=== PATIENT | female | born 1995 | race Caucasian/White ===

== ENCOUNTER 2025-04-21 09:18 | Day surgery (SDC) | payer OTHER ==
[2025-04-14 16:31] LABS: BASOPHILS # (AUTO) 0.1 X10'3 (0-0.2); BASOPHILS % (AUTO) 0.7 % (0-1); EOSINOPHILS # (AUTO) 0.2 X10'3 (0-0.9); EOSINOPHILS % (AUTO) 1.6 % (0-6); LYMPHOCYTES # (AUTO) 2.8 X10'3 (1.1-4.8); LYMPHOCYTES % (AUTO) 27.3 % (21-51); MEAN CORPUSCULAR VOLUME 85.2 FL (78-98); MEAN PLATELET VOLUME 6.9 FL (7.4-10.4); MONOCYTES # (AUTO) 0.6 X10'3 (0-0.9); MONOCYTES % (AUTO) 5.5 % (2-12); NEUTROPHILS # (AUTO) 6.7 X10'3 (1.8-7.7); NEUTROPHILS % (AUTO) 64.9 % (42-75); PRE OP HEMATOCRIT 42.8 % (35.0-45.0); PRE OP HEMOGLOBIN 14.6 g/dL (12.0-16.0); PRE OP PLATELET COUNT 277 X10'3 (140-440); PRE OP WHITE BLOOD COUNT 10.4 10'3 (4.8-10.8); RED BLOOD COUNT 5.03 X10'6 (4.20-5.60); RED CELL DISTRIBUTION WIDTH 13.2 % (11.5-14.5)
[2025-04-14 16:32] LABS: BILIRUBIN,URINE NEGATIVE (Neg); CLARITY,URINE CLEAR (Clear); COLOR,URINE YELLOW (Yellow); GLUCOSE, URINE NEGATIVE (Neg); KETONES,URINE TRACE mg/dl (Neg); LEUKOCYTE ESTERASE ,URINE NEGATIVE (Neg); NITRITES, URINE NEGATIVE (Neg); OCCULT BLOOD,URINE TRACE-INTACT (Neg); PROTEIN,URINE NEGATIVE (Neg); UROBILINOGEN,URINE 0.2 E.U/dL (0.2-1.0)
[2025-04-14 16:41] LABS: UA COLLECTION TYPE CLN CATCH MIDSTREAM
[2025-04-14 16:42] LABS: RBC,URINE 0-2 /HPF (0-2); WBC,URINE 0-4 /HPF (0-4)
[2025-04-14 16:43] LABS: BACTERIA,URINE FEW /HPF (Neg); MUCUS STRANDS NONE SEEN /LPF (Neg); SQUAMOUS EPITHELIAL CELL,UR MODERATE /LPF (FEW)
[2025-04-14 17:06] LABS: HCG SERUM QL NEGATIVE
[2025-04-14 17:09] LABS: PRE OP INR 1.1 INR
[2025-04-14 17:23] LABS: ALBUMIN 4.1 G/DL (3.4-5.0); ALBUMIN/GLOBULIN RATIO 1.2 (1.1-1.5); ALKALINE PHOSPHATASE 61 IU/L (46-116); BLOOD UREA NITROGEN 13 MG/DL (7-18); BUN/CREATININE RATIO 17.6 (10.0-20.0); CHLORIDE 105 MMOL/L (99-107); CREATININE 0.74 MG/DL (0.40-0.90); PRE OP ALT 25 U/L (30-65); PRE OP ANION GAP 6 (8-16); PRE OP AST 23 U/L (10-37); PRE OP BILIRUB, TOTAL 0.5 MG/DL (0.0-1.0); PRE OP GLUCOSE 89 MG/DL (70-104); PRE OP POTASSIUM 3.4 MMOL/L (3.4-5.1); PRE OP SODIUM 142 MMOL/L (135-145); TOTAL CARBON DIOXIDE 31.2 MMOL/L (24-32); TOTAL PROTEIN 7.5 G/DL (6.4-8.2); eGFR > 90 ML/MIN
[2025-04-21] VITALS (13 sets, daily range): BP systolic 99–113; BP diastolic 51–66; PULSE 69–116; RESP 9–23; TEMP 98.3; O2SAT 96–99
[~2025-04-21] VITALS: Ht 165.1 cm; Wt 70.0 kg
[2025-04-21] MEDS: ceFAZolin 2gm in dextrose, iso 50 ML IV ONE (05:30)
[~2025-04-21 09:18] MED LIST: ESCI5TAB17 PO; LEVE500T PO; [UNRECOGNIZED DRUG - CODE] SQ
[2025-04-21] MEDS: famotidine 20mg tablet PO ONE (10:10)
[2025-04-21] MEDS: ringers solution, lacted 1,000 ML IV SCH (10:11)
[2025-04-21] MEDS ORDERED: bacitracin 15gm ointment TP ONE (11:04)
[2025-04-21] MEDS ORDERED: vancomycin 1,000mg inj ONE (11:04)
[2025-04-21] MEDS ORDERED: BUPIVAcaine 2.5mg/ml inj 50ml vial (contains preservative) ONE (11:04)
[2025-04-21] MEDS ORDERED: cloNIDine hcl/PF 100mcg/ml inj ONE (13:08)
[2025-04-21] MEDS ORDERED: fentaNYL/PF 50MCG/1 ML 2ML syringe ONE (13:18)
[2025-04-21] MEDS ORDERED: hydrALAZINE 20mg/ml inj. IV PRN (13:50)
[2025-04-21] MEDS ORDERED: HYDROmorphone/PF 0.2 MG/ML SYRINGE IV PRN (13:50)
[2025-04-21] MEDS ORDERED: morphine 2 MG/ML inj. syringe IV PRN (13:50)
[2025-04-21] MEDS ORDERED: proCHLORperazine 10 MG/2 ml inj IV PRN (13:50)
[2025-04-21] MEDS ORDERED: ringers solution, lacted 1,000 ML IV SCH (13:50)
[2025-04-21] MEDS ORDERED: labetalol 20mg/4ml (5mg/ml) syringe IV PRN (13:50)
[2025-04-21] MEDS ORDERED: ondansetron/PF 4mg/2ml inj IV PRN (13:50)
[2025-04-21] MEDS ORDERED: sevoflurane 250ml liquid IH ONE (13:54)
[2025-04-21] MEDS ORDERED: propofol inj 20 ML IV ONE (14:33)
[2025-04-21] MEDS ORDERED: midazolam 1 mg/ML 2ml injection ONE (14:33)
[2025-04-21] MEDS ORDERED: LIDOcaine 2% (20mg/ml) 5ml vial ONE (14:34)
[2025-04-21] MEDS ORDERED: dexamethasone sod phosphate 4mg/ml inj. ONE (14:34)
[2025-04-21] MEDS ORDERED: 0.9 % SODIUM CHLORIDE 10 ML VIAL ONE (14:34)
[2025-04-21] MEDS ORDERED: ROPIVAcaine 0.5% (5mg/ml) 30ml vial ONE (14:34)
[2025-04-21] MEDS: morphine 4 MG/ML inj SYRINge IV PRN (17:35)
[2025-04-21] MEDS: HYDROmorphone/PF 0.2 MG/ML SYRINGE IV PRN (17:52)
[2025-04-21] MEDS: acetaminophen 1,000mg/100ml IV 100 ML IV PRN (17:53)
[2025-04-21] MEDS: oxyCODONE/APAP 5-325mg tablet PO ONE (18:21)
--- NOTE | 2025-04-21 18:21 | OPERATIVE REPORT ---
DATE OF SURGERY: 04/21/2025 DICTATING PHYSICIAN: Pierce Mc DPM PREOPERATIVE DIAGNOSES: * Tear of the anterior talofibular ligament, left ankle. * Tear of the peroneus brevis tendon, left ankle. * Tear of the peroneus longus tendon, left ankle. * Tear of the posterior tibial tendon, left ankle and foot. * Partial tear of the spring ligament of the left foot. POSTOPERATIVE DIAGNOSES: * Tear of the anterior talofibular ligament, left ankle. * Tear of the peroneus brevis tendon, left ankle. * Tear of the posterior tibial tendon, left ankle and foot. * Partial tear of the spring ligament of the left foot. There was no identifiable tear of the peroneus longus tendon and therefore, there was no surgical procedure to repair that tendon. PROCEDURES: * Repair of the anterior talofibular ligament with the use of a [place] 28 internal brace system, left ankle. * Separate incision for the repair of the peroneus brevis tendon with graft, left ankle. * Flexor digitorum longus tendon transfer, left foot and ankle. * Medial calcaneal displacement osteotomy with rigid internal fixation, left heel. COMPLICATIONS: One of the guide pins broke in the heel bone while advancing it out with a wire driver recruiter. However, the pin is not intraarticular and should not cause the patient any problems whatsoever. ESTIMATED BLOOD LOSS: Less than 5 mL. INDICATIONS FOR SURGERY: The patient had a Workers' Compensation related injury with significant soft tissue injuries. She has been treated conservatively for over 6 months with immobilization, physical therapy, splinting, anti-inflammatory medication, and these conservative measures have not been successful in reducing her chief complaint of pain and disability. Therefore, surgical intervention was considered justified. A C-arm was used during the case and a Benoit splint. was applied to the left lower extremity, making sure to keep the foot at 90 degrees to the lower leg. Capillary refill time was instantaneous upon completion of the procedure. DESCRIPTION OF PROCEDURE: The patient was escorted to the operating room suite, where she was prepared and draped in the usual sterile technique. The patient was given 2 g of Ancef IV 30 minutes prior to the skin incision. The patient was placed in the supine position, and the tourniquet was inflated to 250 mmHg after exsanguinating the left lower extremity. The initial procedure consisted of repair of the anterior talofibular ligament. This was done by way of a lateral extensile incision. The incision allowed for visualization of the torn anterior talofibular ligament. Utilizing the [place] 28 internal brace system, an anchor were placed into the body of the talus as well as into the distal anterior aspect of the fibula. Multiple sutures were used after imbricating and then to repairing the torn ligament. The foot and ankle was maintained in a dorsiflexed position with some valgus alignment during the ligament repair. The next part of the procedure consisted of a separate incision for the peroneus brevis tendon repair. An interstitial split tear was noted along the course of the peroneus brevis tendon. This was tubularized and repaired with suture, and then, utilizing a collagen graft for scaffold, the graft was wrapped around the tendon that was torn and then sutured down with the use of #3-0 Vicryl. The next part of the procedure consisted of a separate incision for medial calcaneal displacement osteotomy of the left heel. This was done along the lateral aspect of the calcaneus. The osteotomy was through and through. Lamina head trimmer was used to distract the osteotomy and then the tuber of the calcaneus was shifted medially about 6 mm. Two screws were used for rigid internal fixation. It was noted that one of the guide pins broke in the bone while attempting to advance the pin out and remained buried entirely within the bone.The next part of the procedure consisted of a flexor digitorum longus tendon transfer. This was done with a separate incision. The posterior tibial tendon was visualized and it was noted to have a longitudinal split tear distal to the retromalleolar groove of the medial malleolus. There was also degeneration noted for the posterior tibial tendon. The flexor digitorum longus tendon was released proximal to the master knot of Umesh and then was tunneled into the navicular bone from plantar to dorsal and then a [place] 28 Bio-Tenodesis screw was used to maintain the appropriate position of the flexor digitorum longus tendon into the bony tunnel. The foot was placed in slight inversion and plantarflexion when performing this part of the procedure and physiologic tension was maintained. The flexor digitorum longus tendon was then sutured down to the posterior tibial tendon for reinforcement. Any bleeding vessels were bovied and neurovascular structures were protected throughout the procedure. Irrisept was used for irrigation. Saline was also used for irrigation. C-arm was used during the case. Appropriate alignment was noted intraoperatively. The patient was placed in a posterior splint, Benoit splint style. Capillary refill time was instantaneous for toes 1 through 5 left. The patient was then escorted to PACU with the appropriate postoperative instructions. The patient was given general anesthesia and was also given a popliteal and an adductor canal block for long postoperative anesthesia. Pierce Mc DPM TID: [id number] RECEIPT: [id number] MELIDA/NATI JOLLEY
== END 2025-04-21 18:50 | disposition home or self-care (01) ==
LOC: PAS 09:18
PROVIDERS: ATTEND Podiatrist Foot & Ankle Surgery
DX: S86.312A Strain of muscle(s) and tendon(s) of peroneal muscle group at lower leg level, left leg, initial encounter (principal); S96.812A Strain of other specified muscles and tendons at ankle and foot level, left foot, initial encounter; S93.692A Other sprain of left foot, initial encounter; M76.822 Posterior tibial tendinitis, left leg; M21.6X2 Other acquired deformities of left foot; F32.A Depression, unspecified; F41.9 Anxiety disorder, unspecified; G40.909 Epilepsy, unspecified, not intractable, without status epilepticus; X58.XXXA Exposure to other specified factors, initial encounter; Y93.89 Activity, other specified; Y92.89 Other specified places as the place of occurrence of the external cause; Y99.8 Other external cause status; Z79.01 Long term (current) use of anticoagulants; G89.18 Other acute postprocedural pain; Z79.899 Other long term (current) drug therapy
CPT/HCPCS: 27659; 27691; 27695; 28300; 36415; 64445; 64447; 73610; 80053; 81001; 82948; 84703; 85025; 85610; 85730; A6222; A6223; C1713; C1781; J0131; J0735; J1100; J1171; J2003; J2250; J2270; J2704; J2795; J3010; J3490; J7030; J7120; Z7506; Z7508; Z7512; 76000; A4618; A6253; A6446; A6449; A6455; A7000; J3370

== ENCOUNTER 2025-04-23 00:31 | Inpatient (IN) | payer BC, OTHER ==
[~2025-04-23] VITALS: Ht 165.1 cm; Wt 72.0 kg
--- NOTE | 2025-04-23 01:11 | Physician Documentation ---
History of Present Illness ~ Chief Complaint: Post-operative complication Stated Complaint: PAIN Time Seen by MD: 01:10 HPI Patient presents to the emergency room with pain to her left lower extremity after having surgery two days ago. She says the block wore off today he had and she has been taking ibuprofen Tylenol and oxycodone and it is not helping the pain. Medication Reconciliation Allergies: Coded Allergies: gluten (Verified Allergy, Severe, CONSTIPATION, BLOATING, AND RASH, 04/20/25) Scheduled Escitalopram Oxalate (Escitalopram Oxalate), 1 TAB PO DAILY, (Reported) Levetiracetam (Levetiracetam), 2 TAB PO BID, (Reported) Semaglutide (Semaglutide), Unknown Dose SQ Q7DAYS, (Reported) Review of Systems ROS All review of systems negative except as per HPI Physical Exam Vital Signs: Temperature: 97.8, Source: Temporal, Heart Rate: 87, Respiratory Rate: 18, BP: 104/63, Pulse Oximetry: 100, Weight: 72.000 Oxygen Flow Rate: 0 Physical Exam General: Patient is awake, alert, oriented x4 in mild distress Head: Normocephalic and atraumatic. Eyes: Conjunctival normal. EOMI. PERRL. ENT: Mucous membranes moist. Neck: Supple, trachea is midline. Chest: Clear to auscultation bilaterally without rales, rhonchi, or wheezes. There is no accessory muscle use or retractions. Cardiac: RRR without murmurs, gallops, or rubs. Abd: Soft, nondistended, nontender, with normoactive bowel sounds. No guarding, rebound, or rigidity. Extremities: Right lower extremity normal, left lower extremity with postsurgical changes with no signs of infection with good capillary refill, no active bleeding Progress Results/Orders Results/Orders Orders - FAB FOSS MD Ortho Orders (04/23/25 01:23) Page Hospitalist (04/23/25 02:50) Fill Out Med Reconciliation (04/23/25 02:50) Completed Orders - FAB FOSS MD Ondansetron Inj. (Zofran 4mg/2ml Vial) (04/23/25 01:25) Morphine 4mg/Ml Inj. (Morphine Inj.) (04/23/25 01:25) Hydromorphone 0.5 Mg/0.5 Ml/Pf (Dilaudid (04/23/25 02:05) Cbc/Diff (04/23/25 02:06) BMP (04/23/25 02:06) CK (04/23/25 02:06) Procalcitonin (04/23/25 02:06) Hydromorphone 0.5 Mg/0.5 Ml/Pf (Dilaudid (04/23/25 03:15) Medications Received in ER Medications (Trade) Dose Ordered Sig/Anoop Route PRN Reason Start Time Stop Time Status Last Admin Dose Admin (Zofran 4mg/2ml vial) 4 mg ONCE ONCE IV 04/23/25 01:25 04/23/25 01:26 DC 04/23/25 01:33 4 MG (morphine inj.) 4 mg ONCE ONCE IV 04/23/25 01:25 04/23/25 01:26 DC 04/23/25 01:33 4 MG (Dilaudid inj.) 0.5 mg ONCE ONCE IV 04/23/25 02:05 04/23/25 02:08 DC 04/23/25 02:15 0.5 MG (Dilaudid inj.) 0.5 mg ONCE ONCE IV 04/23/25 03:15 04/23/25 03:16 DC 04/23/25 03:57 0.5 MG (Dilaudid inj.) 0.5 mg Q4H PRN IV SEVERE PAIN 7-10 04/23/25 03:40 04/23/25 04:28 0.5 MG Sodium Chloride 1,000 ml @ 50 mls/hr Q20H IV 04/23/25 03:40 04/23/25 04:32 50 MLS/HR Vital Signs 04/23/25 04/23/25 04/23/25 04/23/25 00:39 01:33 01:59 02:15 Temp 97.8 Pulse 87 Resp 18 20 20 20 B/P (MAP) 104/63 Pulse Ox 100 O2 Flow Rate 0 04/23/25 02:46 Resp 18 Laboratory Tests Test 04/23/25 02:12 White Blood Count 11.8 H Red Blood Count 4.90 Hemoglobin 14.2 Hematocrit 41.4 Mean Corpuscular Volume 84.4 Mean Corpuscular Hemoglobin 29.0 Mean Corpuscular Hemoglobin Concent 34.3 Red Cell Distribution Width 13.2 Platelet Count 277 Mean Platelet Volume 7.0 L Neutrophils (%) (Auto) 60.0 Lymphocytes (%) (Auto) 33.1 Monocytes (%) (Auto) 5.7 Eosinophils (%) (Auto) 0.6 Basophils (%) (Auto) 0.6 Neutrophils # (Auto) 7.1 Lymphocytes # (Auto) 3.9 Monocytes # (Auto) 0.7 Eosinophils # (Auto) 0.1 Basophils # (Auto) 0.1 CBC Comment Sodium Level 141 Potassium Level 3.5 Chloride Level 106 Carbon Dioxide Level 25.2 Anion Gap 10 Blood Urea Nitrogen 15 Creatinine 0.96 H Estimated GFR/1.73 m2 68 BUN/Creatinine Ratio 15.6 Glucose Level 98 Osmolality 290 Calcium Level 9.0 Total Creatine Kinase 312 H Albumin 3.9 Procalcitonin < 0.05 Chemistry Comments Medical Decision Making Findings Patient presents to the emergency room for evaluation of foot pain status post surgery. Differentials include but are not limited to compartment syndrome, arterial clot, DVT, postoperative pain, muscle spasms, infection therefore emergent labs ordered which was reassuring for no signs of infection. Mild elevation of CK which I would expect from a surgery however nothing I would expect for compartment syndrome and given this along with foot surgery and he had not feel she is suffering from compartment syndrome. Patient is having reported spasms and I do believe this is contributing to her pain. Good pulses and good plethora and I do not feel she is suffering from arterial occlusion. Departure Admitted to Inpatient Unit: yes, to hospitalist Impression: Primary Impression: Uncontrolled pain Referrals: NO PRIMARY CARE PROVIDER (PCP) FAB FOSS MD April 23, 2025 01:11
[2025-04-23] MEDS: morphine 4 MG/ML inj SYRINge IV ONE (01:33)
[2025-04-23] MEDS: ondansetron/PF 4mg/2ml inj IV ONE (01:33)
[2025-04-23] MEDS: HYDROmorphone inj. 0.5 MG/0.5 ML DISP.SYRIN IV ONE ×2 (02:15→03:57)
[2025-04-23 02:31] LABS: BASOPHILS # (AUTO) 0.1 X10'3 (0-0.2); BASOPHILS % (AUTO) 0.6 % (0-1); EOSINOPHILS # (AUTO) 0.1 X10'3 (0-0.9); EOSINOPHILS % (AUTO) 0.6 % (0-6); HEMATOCRIT 41.4 % (35.0-45.0); HEMOGLOBIN 14.2 g/dl (12.0-16.0); LYMPHOCYTES # (AUTO) 3.9 X10'3 (1.1-4.8); LYMPHOCYTES % (AUTO) 33.1 % (21-51); MEAN CORPUSCULAR HGB CONC 34.3 g/dL (33.0-36.5); MEAN CORPUSCULAR VOLUME 84.4 FL (78-98); MONOCYTES # (AUTO) 0.7 X10'3 (0-0.9); MONOCYTES % (AUTO) 5.7 % (2-12); NEUTROPHILS # (AUTO) 7.1 X10'3 (1.8-7.7); PLATELET COUNT 277 X10'3 (140-440); RED CELL DISTRIBUTION WIDTH 13.2 % (11.5-14.5); WHITE BLOOD COUNT 11.8 X10'3 (4.5-11.0)
[2025-04-23 02:38] LABS: ALBUMIN 3.9 G/DL (3.4-5.0); ANION GAP 10 (8-16); BLOOD UREA NITROGEN 15 MG/DL (7-18); BUN/CREATININE RATIO 15.6 (10.0-20.0); CHLORIDE 106 MMOL/L (99-107); CREATINE KINASE 312 U/L (26-192); CREATININE 0.96 MG/DL (0.40-0.90); GLUCOSE 98 MG/DL (70-104); POTASSIUM 3.5 MMOL/L (3.5-5.1); SODIUM 141 MMOL/L (135-145); TOTAL CARBON DIOXIDE 25.2 MMOL/L (24-32); eCRCL 76 ML/MIN; eGFR 68 ML/MIN
[2025-04-23] MEDS ORDERED: acetaminophen 325mg tablet PO PRN (03:40)
[2025-04-23] MEDS ORDERED: magnesium hydroxide 30ml (MOM) UD suspension PO PRN (03:40)
[2025-04-23] MEDS ORDERED: potassium Cl 20 mEq SR tablet PO PRN (03:40)
[2025-04-23] MEDS ORDERED: mag hydrox/Alum hydrox/simeth 30ml oral suspension PO PRN (03:40)
[2025-04-23] MEDS ORDERED: ondansetron/PF 4mg/2ml inj IV PRN (03:40)
[2025-04-23] MEDS ORDERED: magnesium sulf-water 4G/100mL 100 ML IV PRN (03:40)
[2025-04-23] MEDS ORDERED: magnesium Cl slow-release 64mg tablet PO PRN (03:40)
[2025-04-23] MEDS ORDERED: potassium Cl 40MEQ/1/2NS 520ml 520 ML IV PRN (03:40)
[2025-04-23] MEDS ORDERED: magnesium sulf-water 2g/50mL 50 ML IV PRN (03:40)
[2025-04-23] MEDS: midazolam 1 mg/ML 2ml injection IV ONE (04:05)
[2025-04-23] MEDS: orphenadrine citrate 60mg/2ml inj. IM ONE (04:15)
--- NOTE | 2025-04-23 04:17 | HISTORY AND PHYSICAL-Residence ---
History & Physical Providers to CC Resident Creating Document: MATTHEW LESTER, RES ~ History of Present Illness Primary Medical Doctor: [facility] Reason for Admit\Complaint: Left lower extremity pain History of Present Illness Surgeon: Dr. Pierce Mc. 29-year-old female patient with past medical history of epilepsy, depression came to the hospital with chief complaint of left ankle pain. As per patient she underwent surgical repair of her ligaments two days ago. The patient mentioned that she slipped approximately six months ago, during her tendons and ligaments reason for which she needed the surgery. On Saturday Dr. Pierce Mc performed repair of the anterior talofibular ligament, flexor digitorum longus tendon transfer, medial calcaneal displacement osteotomy with rigid internal fixation, left heel. During the procedure the patient underwent a nerve blockade which wore off yesterday, the patient tried taking ibuprofen, Tylenol, oxycodone which did not help with the pain. She describes a pain of 10/10 in intensity with radiation to the knee and tied, stabbing type, associated cramps. After taking all the medication reported above and because the pain did not subside the patient decided to come to the ER where she received Dilaudid without improvement. The patient currently denies any chest pain, palpitations, urinary or intestinal symptoms. Allergies: Coded Allergies: gluten (Verified Allergy, Severe, CONSTIPATION, BLOATING, AND RASH, 04/20/25) Home Medications Home Medications Active Reported Semaglutide Unknown Strength Syringe Unknown Dose SQ Q7DAYS Escitalopram Oxalate 5 Mg Tablet 1 Tab PO DAILY Levetiracetam 500 Mg Tablet 2 Tab PO BID Past Medical History Past Medical History Epilepsy taking levetiracetam 500 mg b.i.d.. Depression taking citalopram 5 mg daily. Past Surgical History Surgical History Comment [place] teeth surgery. Left ankle orthopedic surgery two days ago. Past Social History Smoking: Non-Smoker Alcohol Use: None Drug Use: None Lives with: Spouse Lives In: Home ROS All Other Systems: Reviewed and Negative Exam Vitals: Vital Signs Date Time Temp Pulse Resp B/P (MAP) Pulse Ox O2 Delivery O2 Flow Rate FiO2 04/23/25 03:57 20 04/23/25 00:39 97.8 87 104/63 100 0 Physical exam: General: Well alert, well oriented, not confused, moderately agitated due to the pain, well cooperated during the physical. HEENT: Conjunctive are pink, sclerae clear, no icterus, pupil is equal in both sides, reactive to light, no ear discharge, no pharyngeal erythema or an edema. Neck: Supple, no JVD, no lymphadenopathy and thyromegaly. Chest: Equal air entry on both lungs, no additional sounds no rhonchi no wheezing at the moment. Cardiovascular: S1-S2 regular sinus rhythm and, regular rate, no gallops, no rubs, no murmurs Abdomen: No visible peristalsis, Bowel sounds present on auscultation, soft, nontender, no guarding, no rigidity Extremities: No obvious deformities, no pitting edema bilaterally, capillary refill intact, peripheral pulsations are intact on both sides, presence of cast in the left lower extremity, able to wiggle dose in bilateral feet. Central Nervous System: No focal neurological deficits, no motor or sensory weakness in all 4 extremities, could move all 4 extremities, 2+ deep tendon reflexes, negative Babinski. Musculoskeletal: No joint swelling, deformities, inflammations, and no scoliosis and back tenderness Skin: Warm and dry. Diagnostic Data Last Recorded Lab Results: 04/23/2521104/23/25211 Advance Care Planning Advanced Care plannin - 30 Minutes (I spent a total of 17 minutes on reviewing various resuscitative measures/ACP with the patient at the time of admission. The patient has decided on a full code status.) Additional Plan Assessment and plan: 29-year-old female patient came to the hospital due to left lower extremity pain. Left lower extremity pain: S/p repair of the anterior talofibular ligament, flexor digitorum longus tendon transfer, medial calcaneal displacement osteotomy with rigid internal fixation, left heel on 04/21/2025: Patient came to the hospital with chief complaint of intractable pain in the left lower extremity after surgical repair. Dr. Pierce Mc. Contacted by ER physician for possible blockage. Creatinine kinase levels: 312, continue to monitor CK. Dilaudid 0.2 mg q.4h p.r.n. for moderate pain. Dilaudid 0.5 mg q.4h p.r.n. for severe pain. Epilepsy: Continue Keppra 500 mg b.i.d. Depression: Continue escitalopram 5 mg daily. Code status: Full code DVT prophylaxis: Heparin Analgesia/sedation: Dilaudid Line/tube: PIV GI prophylaxis: None Nutrition: Regular diet PT: Ordered Prognosis: Guarded Disposition: The patient will be admitted to surgical floor. Matthew Alanis Internal Medicine Resident [facility] Lizzette Addendum #1 Neuro: The pt has a history of Seizures and post-surgical ankle pain -Continue home AED regimen for epilepsy - multimodal pain control, conisder nerve blokc if now working -Monitor for delirium #2 CV: There is no evidence of neurovascular compromise or compartment syndrome on visual exam, no TTP to toes -Pt HD stable, monitor vitals #3 Pulm: -Promote IS use -Keep O2 sat >92% #4 GI: -Advance diet when tolerated by the primary #5 Renal: -Monitor for SAUMYA -Replete lytes #6 ID: -Monitor for signs of infection, especially at surgical site #7 Endo: -Maintain FS 150-180 #8 Heme/Onc: -Monitor for bleeding and blood clots -Keep Hgb >7 and plt >10 #9 PPx: -Chemical DVT prophylaxis, consider mechanical methods if contraindicated due to recent surgery #10 Ortho: -Post-surgical care for foot repair -Elevate the affected limb, monitor for swelling and adequate healing of surgical site Date of Service: April 23, 2025 Billing Provider: SANDRA MORALES MD, FRANCO LUIS, RES April 23, 2025 04:17 SANDRA MORALES MD April 23, 2025 08:09
[2025-04-23] MEDS: HYDROmorphone inj. 0.5 MG/0.5 ML DISP.SYRIN IV PRN (04:28)
[2025-04-23] MEDS: normal saline 1000ml 1,000 ML IV SCH (04:32)
[2025-04-23] MEDS: ketorolac trometh 15mg/ml vial 15 MG/ML ML IV ONE ×2 (06:11→21:39)
[2025-04-23] MEDS: HYDROmorphone/PF 0.2 MG/ML SYRINGE IV PRN (06:54)
[2025-04-23] MEDS: K and/or MAG REPLACEMENT MC SCH (07:59)
[2025-04-23] MEDS ORDERED: docusate sod 100mg capsule PO SCH (08:00)
[2025-04-23 09:26] LABS: BILIRUBIN,URINE NEGATIVE (Neg); CLARITY,URINE CLEAR (Clear); COLOR,URINE YELLOW (Yellow); GLUCOSE, URINE NEGATIVE (Neg); KETONES,URINE 15 mg/dl (Neg); LEUKOCYTE ESTERASE ,URINE SMALL (Neg); NITRITES, URINE NEGATIVE (Neg); OCCULT BLOOD,URINE NEGATIVE (Neg); PH,URINE 6.5 (4.8-8.0); PROTEIN,URINE NEGATIVE (Neg); UROBILINOGEN,URINE 0.2 E.U/dL (0.2-1.0)
[2025-04-23 09:31] LABS: TOTAL PROTEIN,URINE RANDOM 8.7 MG/DL
[2025-04-23 09:38] LABS: UA COLLECTION TYPE CLN CATCH MIDSTREAM
[2025-04-23 09:40] LABS: BACTERIA,URINE FEW /HPF (Neg); MUCUS STRANDS FEW /LPF (Neg); SQUAMOUS EPITHELIAL CELL,UR FEW /LPF (FEW)
[2025-04-23 09:40] LABS: CREATINE KINASE 370 U/L (26-192); MAGNESIUM 1.9 MG/DL (1.5-2.4); POTASSIUM 3.3 MMOL/L (3.5-5.1)
[2025-04-23 10:16] VITALS: BP 109/72; PULSE 96; RESP 18; TEMP 97.7; O2SAT 100
[2025-04-23] MEDS: baclofen 10mg tablet PO PRN (10:22)
[2025-04-23 10:33] LABS: UA EOSINOPHILS NO EOS /HPF
[2025-04-23] MEDS: diazepam 5mg tablet PO PRN (13:29)
[2025-04-23] MEDS: potassium Cl 20 mEq SR tablet PO PRN (15:22)
[2025-04-23] MEDS: HYDROmorphone 1 mg/ml syringe IV PRN (15:30)
[2025-04-23 16:32] VITALS: RESP 16; O2SAT 100
[2025-04-23 18:00] VITALS: BP 120/63; PULSE 79; RESP 18; TEMP 98.4; O2SAT 98
[2025-04-23 20:00] VITALS: RESP 16; O2SAT 100
--- NOTE | 2025-04-23 20:39 | PROGRESS NOTE ---
Daily Progress Note Providers to CC ~ Antibiotic Timeout Antibiotic Ordered?: No Subjective Patient was experiencing intractable left lower extremity pain- Dilaudid only helped somewhat I spoke with the patient's dairy scientist Dr. Mc who recommended loosening the splint and removing Coban which they did in the ED the patient continued to have significant discomfort and thus I reached out to Dr. Kelsey who informed me that the patient has muscle spasms and thus I started the patient on diazepam and the patient's pain is improved. Note that the patient had surgery on 04/21/2025 for multiple tendon tears of the left ankle Objective Vital Signs Date Time Temp Pulse Resp B/P (MAP) Pulse Ox O2 Delivery O2 Flow Rate FiO2 04/23/25 19:40 18 04/23/25 16:32 100 Room Air 04/23/25 10:16 97.7 96 109/72 (84) 04/23/25 00:39 0 Result Diagram: 04/23/25 0212 04/23/25 0823 Gen. No acute distress alert and oriented 4 Lungs clear to ascultation bilaterally, no wheezes rales or rhonchi appreciated Heart normal sinus rhythm no murmurs rubs or clicks noted Abdomen soft nontender bowel sounds are normoactive Lower extremities no clubbing cyanosis, nor edema appreciated right, splint is present on the left Problem\Assessment\Plan Problems/Diagnosis: (1) Uncontrolled pain # intractable left lower extremity pain:I spoke with the patient's dairy scientist Dr. Mc who recommended loosening the splint and removing Coban which they did in the ED the patient continued to have significant discomfort and thus I reached out to Dr. Kelsey who informed me that the patient has muscle spasms and thus I started the patient on diazepam and the patient's pain is improved. # status post left ankle surgery with the following diagnoses and procedures on 04/21/2025 POSTOPERATIVE DIAGNOSES: * Tear of the anterior talofibular ligament, left ankle. * Tear of the peroneus brevis tendon, left ankle. * Tear of the posterior tibial tendon, left ankle and foot. * Partial tear of the spring ligament of the left foot. PROCEDURES: * Repair of the anterior talofibular ligament with the use of a [place] 28 internal brace system, left ankle. * Separate incision for the repair of the peroneus brevis tendon with graft, left ankle. * Flexor digitorum longus tendon transfer, left foot and ankle. * Medial calcaneal displacement osteotomy with rigid internal fixation, left heel. # hypokalemia- On potassium replacement protocol # epilepsy- Continue Keppra # depression Continue citalopram Date of Service: April 23, 2025 Billing Provider: BAO WHITNEY DO Common Visit Codes: NOT BILLABLE (Admitted after midnight to be billed by car repairer) BAO WHITNEY DO April 23, 2025 20:39
[2025-04-23] MEDS: levetiracetam 250mg tablet PO SCH (21:38)
[2025-04-23 22:00] VITALS: BP 120/63; PULSE 79; RESP 18; TEMP 98.4; O2SAT 98
[2025-04-24 06:30] LABS: ALANINE AMINOTRANSFERASE 94 U/L (12-78); ALBUMIN 3.2 G/DL (3.4-5.0); ALKALINE PHOSPHATASE 61 IU/L (46-116); ANION GAP 7 (8-16); ASPARTATE AMINO TRANSFERASE 66 U/L (10-37); BILIRUBIN,TOTAL 0.4 MG/DL (0.1-1.0); BLOOD UREA NITROGEN 8 MG/DL (7-18); CALCIUM 8.2 MG/DL (8.5-10.1); CHLORIDE 106 MMOL/L (99-107); CREATINE KINASE 576 U/L (26-192); CREATININE 0.73 MG/DL (0.40-0.90); GLUCOSE 91 MG/DL (70-104); MAGNESIUM 1.8 MG/DL (1.5-2.4); POTASSIUM 3.7 MMOL/L (3.5-5.1); SODIUM 141 MMOL/L (135-145); TOTAL CARBON DIOXIDE 27.7 MMOL/L (24-32); TOTAL PROTEIN 6.5 G/DL (6.4-8.2); eCRCL 100 ML/MIN; eGFR > 90 ML/MIN
[2025-04-24 06:40] VITALS: BP 105/66; PULSE 95; RESP 16; TEMP 98.5; O2SAT 98
[2025-04-24] MEDS: ESCITALOPRAM 10 mg tablet 10 MG TABLET PO SCH (07:30)
[2025-04-24 08:00] VITALS: RESP 16; O2SAT 100
[2025-04-24] MEDS ORDERED: levetiracetam 250mg tablet PO SCH (08:00)
[2025-04-24 08:36] LABS: BASOPHILS % (AUTO) 0.3 % (0-1); EOSINOPHILS # (AUTO) 0.2 X10'3 (0-0.9); EOSINOPHILS % (AUTO) 1.8 % (0-6); HEMATOCRIT 37.8 % (35.0-45.0); HEMOGLOBIN 12.8 g/dl (12.0-16.0); LYMPHOCYTES # (AUTO) 2.7 X10'3 (1.1-4.8); LYMPHOCYTES % (AUTO) 28.8 % (21-51); MEAN CORPUSCULAR HEMOGLOBIN 29.1 PG (27.0-31.0); MEAN CORPUSCULAR VOLUME 85.7 FL (78-98); MEAN PLATELET VOLUME 7.1 FL (7.4-10.4); MONOCYTES # (AUTO) 0.5 X10'3 (0-0.9); MONOCYTES % (AUTO) 5.8 % (2-12); NEUTROPHILS % (AUTO) 63.3 % (42-75); PLATELET COUNT 249 X10'3 (140-440); RED BLOOD COUNT 4.41 X10'6 (4.20-5.60); RED CELL DISTRIBUTION WIDTH 13.1 % (11.5-14.5); WHITE BLOOD COUNT 9.4 X10'3 (4.5-11.0)
[2025-04-24 10:00] VITALS: BP 101/58; PULSE 97; RESP 18; TEMP 98.7; O2SAT 97
[2025-04-24] MEDS: oxyCODONE/APAP 10/325mg tablet PO PRN (10:48)
[2025-04-24] MEDS: pregabalin 75mg capsule PO ONE (11:05)
[2025-04-24 18:00] VITALS: BP 115/72; PULSE 88; RESP 17; TEMP 98; O2SAT 96
[2025-04-24] MEDS: pregabalin 75mg capsule PO SCH (19:18)
[2025-04-24 20:00] VITALS: RESP 17; O2SAT 96
--- NOTE | 2025-04-24 21:27 | PROGRESS NOTE ---
Daily Progress Note Providers to CC ~ Antibiotic Timeout Antibiotic Ordered?: No Subjective The patient was insevere pain this morning and Dr. Mc assistant media planner was called and recommended removing the splint the patient has pain improved significantly- also the patient complained of peripheral neuropathy in her feet I started the patient on Lyrica which helped and I am starting the patient on a low dose of nortriptyline this evening 10 mg q.h.s. Objective Vital Signs Date Time Temp Pulse Resp B/P (MAP) Pulse Ox O2 Delivery O2 Flow Rate FiO2 04/24/25 16:59 16 04/24/25 10:00 98.7 97 101/58 (72) 97 Room Air 04/23/25 00:39 0 Result Diagram: 04/24/2580404/24/25 0519 Gen. No acute distress alert and oriented 4 Lungs clear to ascultation bilaterally, no wheezes rales or rhonchi appreciated Heart normal sinus rhythm no murmurs rubs or clicks noted Abdomen soft nontender bowel sounds are normoactive Lower extremities no clubbing cyanosis, nor edema appreciated right, mild edema on the left ankle Problem\Assessment\Plan Problems/Diagnosis: (1) Uncontrolled pain # intractable left lower extremity pain:I spoke with the patient's assistant media planner Dr. Mc who recommended loosening the splint and removing Coban which they did in the ED the patient continued to have significant discomfort and thus I reached out to Dr. Kelsey who informed me that the patient has muscle spasms and thus I started the patient on diazepam and the patient's pain is improved. 04/24 The patient was insevere pain this morning and Dr. Mc assistant media planner was called and recommended removing the splint the patient has pain improved significantly- also the patient complained of peripheral neuropathy in her feet I started the patient on Lyrica which helped and I am starting the patient on a low dose of nortriptyline this evening 10 mg q.h.s. # status post left ankle surgery with the following diagnoses and procedures on 04/21/2025 POSTOPERATIVE DIAGNOSES: * Tear of the anterior talofibular ligament, left ankle. * Tear of the peroneus brevis tendon, left ankle. * Tear of the posterior tibial tendon, left ankle and foot. * Partial tear of the spring ligament of the left foot. PROCEDURES: * Repair of the anterior talofibular ligament with the use of a [place] 28 internal brace system, left ankle. * Separate incision for the repair of the peroneus brevis tendon with graft, left ankle. * Flexor digitorum longus tendon transfer, left foot and ankle. * Medial calcaneal displacement osteotomy with rigid internal fixation, left heel. # hypokalemia- On potassium replacement protocol 04/24 resolved # epilepsy- Continue Keppra # depression Continue citalopram Date of Service: April 24, 2025 Billing Provider: BAO WHITNEY DO Common Visit Codes: [id number] INP/OBS CARE(HIGH) BAO WHITNEY DO April 24, 2025 21:27
[2025-04-24] MEDS: nortriptyline 10mg capsule PO SCH (21:57)
[2025-04-24 22:00] VITALS: BP 98/51; PULSE 99; RESP 14; TEMP 98.4; O2SAT 96
[2025-04-25 05:47] LABS: BASOPHILS # (AUTO) 0.1 X10'3 (0-0.2); BASOPHILS % (AUTO) 0.7 % (0-1); EOSINOPHILS # (AUTO) 0.2 X10'3 (0-0.9); EOSINOPHILS % (AUTO) 2.3 % (0-6); HEMATOCRIT 37.5 % (35.0-45.0); HEMOGLOBIN 12.8 g/dl (12.0-16.0); LYMPHOCYTES # (AUTO) 3.4 X10'3 (1.1-4.8); MEAN CORPUSCULAR HEMOGLOBIN 29.4 PG (27.0-31.0); MEAN CORPUSCULAR HGB CONC 34.1 g/dL (33.0-36.5); MEAN CORPUSCULAR VOLUME 86.2 FL (78-98); MEAN PLATELET VOLUME 7.1 FL (7.4-10.4); MONOCYTES # (AUTO) 0.5 X10'3 (0-0.9); MONOCYTES % (AUTO) 5.6 % (2-12); NEUTROPHILS # (AUTO) 5.1 X10'3 (1.8-7.7); NEUTROPHILS % (AUTO) 54.4 % (42-75); PLATELET COUNT 246 X10'3 (140-440); RED BLOOD COUNT 4.35 X10'6 (4.20-5.60); RED CELL DISTRIBUTION WIDTH 13.3 % (11.5-14.5); WHITE BLOOD COUNT 9.3 X10'3 (4.5-11.0)
[2025-04-25 06:35] LABS: ALANINE AMINOTRANSFERASE 117 U/L (12-78); ALBUMIN/GLOBULIN RATIO 0.8 (1.1-1.5); ALKALINE PHOSPHATASE 77 IU/L (46-116); ANION GAP 6 (8-16); ASPARTATE AMINO TRANSFERASE 73 U/L (10-37); BILIRUBIN,TOTAL 0.5 MG/DL (0.1-1.0); BLOOD UREA NITROGEN 6 MG/DL (7-18); BUN/CREATININE RATIO 7.1 (10.0-20.0); CALCIUM 8.3 MG/DL (8.5-10.1); CHLORIDE 106 MMOL/L (99-107); CREATINE KINASE 464 U/L (26-192); CREATININE 0.85 MG/DL (0.40-0.90); GLUCOSE 91 MG/DL (70-104); MAGNESIUM 1.9 MG/DL (1.5-2.4); POTASSIUM 4.1 MMOL/L (3.5-5.1); SODIUM 141 MMOL/L (135-145); TOTAL CARBON DIOXIDE 29.5 MMOL/L (24-32); TOTAL PROTEIN 6.7 G/DL (6.4-8.2); eCRCL 86 ML/MIN; eGFR 78 ML/MIN
[2025-04-25 06:40] VITALS: BP 111/66; PULSE 84; RESP 18; TEMP 98.2; O2SAT 99
[2025-04-25 08:00] VITALS: RESP 16
[2025-04-25 11:00] VITALS: BP 103/55; PULSE 84; RESP 16; TEMP 98.4; O2SAT 97
[2025-04-25] MEDS ORDERED: LYR75C PO (13:54)
[2025-04-25] MEDS ORDERED: NORT10CA2 PO (13:54)
[2025-04-25] MEDS ORDERED: DIAZ10TA4 PO (13:57)
[2025-04-25 15:34] VITALS: RESP 16
[2025-04-25] MEDS ORDERED: PREG75CA76 PO (16:09)
--- NOTE | 2025-04-25 20:18 | DISCHARGE SUMMARY ---
Discharge Summary Providers to CC ~ Discharge Summary Admission Diagnosis: left lower extremity pain Hospital Course DATE OF ADMISSION: 04/23/2025 DATE OF DISCHARGE: 04/25/2025 Discharge Diagnosis\\Comment: Intractable left ankle pain, hypokalemia, epilepsy, depression Operations\\Procedures: None during hospitalization Consultants: None during hospitalization Complications: None Condition on DC: Stable New Medications: Pregabalin (Pregabalin) 75 Mg Capsule 1 CAP PO Q12H MDD 2 Capsule(s) for 30 Days, #60 CAP 0 Refills Diazepam (Diazepam) 10 Mg Tablet 1 TAB PO Q8H PRN for muscle spasms for 30 Days, #15 TAB 0 Refills Nortriptyline Hcl (Nortriptyline Hcl) 10 Mg Capsule 10 MG PO HS, #30 CAP Continued Medications: Escitalopram Oxalate (Escitalopram Oxalate) 5 Mg Tablet 1 TAB PO DAILY Levetiracetam (Levetiracetam) 500 Mg Tablet 2 TAB PO BID Semaglutide (Semaglutide) Unknown Strength Syringe Unknown Dose SQ [id number] Discharge Summary: The patient was admitted by resident physician MATTHEW Lee under the supervision of SANDRA Luong MD with the following HPI:"29-year-old female patient with past medical history of epilepsy, depression came to the hospital with chief complaint of left ankle pain. As per patient she underwent surgical repair of her ligaments two days ago. The patient mentioned that she slipped approximately six months ago, during her tendons and ligaments reason for which she needed the surgery. On Saturday Dr. Pierce Mc performed repair of the anterior talofibular ligament, flexor digitorum longus tendon transfer, medial calcaneal displacement osteotomy with rigid internal fixation, left heel. During the procedure the patient underwent a nerve blockade which wore off yesterday, the patient tried taking ibuprofen, Tylenol, oxycodone which did not help with the pain. She describes a pain of 10/10 in intensity with radiation to the knee and tied, stabbing type, associated cramps. After taking all the medication reported above and because the pain did not subside the patient decided to come to the ER where she received Dilaudid without improvement. The patient currently denies any chest pain, palpitations, urinary or intestinal symptoms." Reviewing Dr. Mc's op note from two days prior to admission the patient has a following diagnoses and procedures done: POSTOPERATIVE DIAGNOSES: * Tear of the anterior talofibular ligament, left ankle. * Tear of the peroneus brevis tendon, left ankle. * Tear of the posterior tibial tendon, left ankle and foot. * Partial tear of the spring ligament of the left foot. PROCEDURES: * Repair of the anterior talofibular ligament with the use of a [place] 28 internal brace system, left ankle. * Separate incision for the repair of the peroneus brevis tendon with graft, left ankle. * Flexor digitorum longus tendon transfer, left foot and ankle. * Medial calcaneal displacement osteotomy with rigid internal fixation, left heel. I contacted the senior associate and informed him how much pain the patient was in which the recommendations were to remove the splint and [place] and replace the looser splint for which the patient continued to have in intractable pain that is the splint was removed the patient was having a significant amount of muscle spasms as per Podiatry and the patient the patient has been ordered baclofen which was helping somewhat I ordered diazepam 10 mg every 6 hours as needed which helped the patient is muscle spasms the patient continue require IV Dilaudid for additional 24 hours the patient has complained of peripheral neuropathy burning in his feet I started the patient is Lyrica and I also started the patient on nortriptyline 10 mg at night for which the combination these medications along with the 10 mg Percocet prescribed by Podiatry a controlled the patient's pain well enough that she can be discharged on the morning of the physical therapy worked with the patient and cleared the patient for discharge to she does have a knee scooter. Patient has a seizure disorder and Keppra was continued. The patient also has depression and and escitalopram was continued. Patient initially had hypokalemia however this was resolved remained normal range the rest of hospitalization. Gen. No acute distress alert and oriented 4 Lungs clear to ascultation bilaterally, no wheezes rales or rhonchi appreciated Heart normal sinus rhythm no murmurs rubs or clicks noted Abdomen soft nontender bowel sounds are normoactive Lower extremities no clubbing cyanosis, nor edema appreciated right, mild edema on the left ankle The patient felt ready to be discharged and was medically cleared to be discharged on 04/25/2025 The patient was seen and evaluated on day of discharge. Time spent on discharge 35 minutes *Problems/Diagnosis: (1) Uncontrolled pain Status: Acute Total Time Spent on D/C: > 30 Minutes Date of Service: April 25, 2025 Billing Provider: BAO WHITNEY DO Common Visit Codes: 13590-YZJ/OBS DISCH DAY >30min BAO WHITNEY DO April 25, 2025 20:18
== END 2025-04-25 16:15 | disposition home or self-care (01) | DRG 948 ==
LOC: ER 00:32 → ED HOLD 03:41 → SUR 3N 09:30
PROVIDERS: ADMIT Internal Medicine Pulmonary Disease; ATTEND Family Medicine
DX: G89.18 Other acute postprocedural pain (principal); E87.6 Hypokalemia; F32.A Depression, unspecified; G40.909 Epilepsy, unspecified, not intractable, without status epilepticus; G62.9 Polyneuropathy, unspecified; Z88.8 Allergy status to other drugs, medicaments and biological substances
CPT/HCPCS: 36415; 80048; 80053; 81001; 82550; 82570; 83735; 83930; 83935; 84132; 84145; 84156; 84300; 84540; 85025; 87088; 87207; 96372; 96374; 96375; 96376; 97161; 97530; 99285; A6223; A6253; A6449; G0378; J1171; J1885; J2270; J2360; J2405; J7030